=== PATIENT | male | born 1985 | race Caucasian/White ===

== ENCOUNTER 2018-09-26 19:45 | Emergency (ER) | payer BC ==
[~2018-09-26] VITALS: Ht 180.3 cm; Wt 97.1 kg
[2018-09-26 22:11] VITALS: BP 135/88
== END 2018-09-26 22:11 | disposition home or self-care (01) ==
LOC: ED 19:45
DX: S62.630B Displaced fracture of distal phalanx of right index finger, initial encounter for open fracture (principal); X58.XXXA Exposure to other specified factors, initial encounter; Y93.89 Activity, other specified; Y92.89 Other specified places as the place of occurrence of the external cause; Y99.8 Other external cause status; Z88.0 Allergy status to penicillin
CPT/HCPCS: 90715; A4570; J0696; J2001